=== PATIENT | female | born 1975 | race Caucasian/White ===

== ENCOUNTER 2022-10-18 13:51 | Outpatient (CLI) | payer BC, SELFPAY | END 2022-10-18 13:52 | disposition home or self-care (01) | LOC: RAD 13:53 | PROVIDERS: PCP Family Medicine; Visit Provider Psychiatry & Neurology Neurology | DX: I77.71 Dissection of carotid artery (principal) | CPT/HCPCS: 93306 ==

== ENCOUNTER 2023-04-08 04:16 | Outpatient (CLI) | payer BC, SELFPAY | END 2023-04-08 04:17 | disposition home or self-care (01) | LOC: AMB 04-09 12:23 | PROVIDERS: PCP Family Medicine; Visit Provider Family Medicine | DX: R55 Syncope and collapse (principal) | CPT/HCPCS: A0425; A0429 ==

== ENCOUNTER 2023-08-16 08:15 | Outpatient (RCR) | payer BC, SELFPAY | END 2023-11-12 15:36 | disposition home or self-care (01) | PROVIDERS: PCP Family Medicine; Visit Provider Family Medicine | DX: M76.62 Achilles tendinitis, left leg (principal); R29.898 Other symptoms and signs involving the musculoskeletal system; M62.81 Muscle weakness (generalized); M79.662 Pain in left lower leg; Z51.89 Encounter for other specified aftercare | CPT/HCPCS: 97035; 97110; 97140; 97161 ==